=== PATIENT | female | born 1955 | race Caucasian/White ===

== ENCOUNTER 2020-05-21 12:58 | Outpatient (CLI) | payer MEDICARE, BC ==
--- NOTE | 2020-05-21 14:48 | MRI ---
MRI Lumbar Spine Noncontrast: HISTORY: Lumbar radiculopathy. Patient states low back pain with right lower extremity radiculopathy and assoc iated foot drop for several months. COMPARISON: MRI lumbar spine on 10/30/[address] lumbar spine on 10/02/2013 FINDINGS: A hyperintense incompletely imaged cystic lesion is seen involving the inferior pole right kidney als o seen on prior exam and most compatible with cysts given stability. Conus medullaris is normal in morphology and terminates at the L2 level. Postoperative changes lumbar spine are noted. There is metallic susceptibility artifact seen in the i ntervertebral disc spaces of the lumbar spine at all levels related to intradiscal prostheses. There is low signal intensity seen in the L1 vertebral body related to vertebroplasty changes involvi ng a stable burst fracture of the L1 vertebral body. Mild right convex curvature of the lumbar spine is again seen. 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 T10-11 and T11-12: There are mild disc osteophyte complexes which result in effacement of the ventral subarachnoid space and encroaches on the anterior aspect of the distal spinal cord. Mild neural foraminal narrowing is present. T12-L1: There is retropulsion of the posterior superior endplate of the L1 vertebral body. A mild dis c osteophyte complex is present at this level which results in slight flattening of the anterior aspect of the ventral subarachnoid space. Mild bilateral neural foraminal narrowing is present. L1-2: There is retropulsion of the posterior inferior endplate of the L1 vertebral body burst fractu re similar to prior study. This results in slight effacement of the ventral subarachnoid space. There is moderate bilateral neural foraminal narrowing greater on the left. L2-3: A disc prosthesis is present at this level. Laminectomy defect is present. Central spinal canal is patent. Mild/moderate bilateral neural foraminal narrowing is again seen. L3-4: Disc prosthesis again present. Laminectomy defect is seen. Central spinal canal is patent. Mild to moderate right-sided neural foraminal narrowing is present with mild left-sided neural foraminal narrowing. Findings are similar to prior exam. L4-5: Disc prosthesis at this level as well as laminectomy defect. Central spinal canal is widely pat ent. Moderate bilateral neural foraminal narrowing is present greater on the right. L5-S1: Disc prosthesis present at this level with laminectomy defect noted. Central spinal canal is w idely patent. Mild facet hypertrophic changes are present at this level. Mild bilateral neural foraminal narrowing is present similar to prior exam. Postcontrast images were not obtained with this exam which limits evaluation for scar tissue. IMPRESSION: 1. Postsurgical and degenerative changes throughout the lumbar spine with disc prostheses throughout the lumbar spine from L1-2 to L5-S1 levels. No significant central canal narrowing is seen throughout the lumbar spine. Varying degrees of neural foraminal narrowing are seen which appear hilda lar to prior exam. 2. MRI lumbar spine is overall similar to prior exam.
== END 2020-05-21 12:59 | disposition home or self-care (01) ==
LOC: MRI 12:58
PROVIDERS: ATTEND Surgery
DX: M47.26 Other spondylosis with radiculopathy, lumbar region (principal); M47.817 Spondylosis without myelopathy or radiculopathy, lumbosacral region; M48.061 Spinal stenosis, lumbar region without neurogenic claudication; M48.07 Spinal stenosis, lumbosacral region; Z98.890 Other specified postprocedural states
CPT/HCPCS: 72148